=== PATIENT | female | born 1985 ===

== ENCOUNTER 2017-05-30 14:16 | Emergency (ER) | payer SELFPAY ==
[2017-05-30 14:17] VITALS: BMI 23.8
[2017-05-30 14:44] VITALS: BP 123/80; PULSE 104; RESP 18; TEMP 98.5; O2SAT 98
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
== END 2017-05-30 16:11 | disposition home or self-care (01) ==
LOC: ED 14:16
DX: T76.21XA Adult sexual abuse, suspected, initial encounter (principal)